=== PATIENT | female | born 1990 | race Hispanic/Latino ===

== ENCOUNTER 2020-08-02 22:06 | Emergency (ER) | payer OTHER, MEDICARE ==
[~2020-08-02] VITALS: Ht 160 cm; Wt 70.3 kg
[2020-08-02] MEDS ORDERED: ONDANSETRON HCL INJ 2MG/ML 2ML 2 MG/ML VIAL IV STA (23:07)
[2020-08-02] MEDS ORDERED: FAMOTIDINE 20 MG/2 ML VIAL IV STA (23:07)
[2020-08-02] MEDS ORDERED: SODIUM CHLORIDE 0.9% 1000ML 1,000 ML IV SCH (23:15)
[2020-08-02] MEDS ORDERED: FAMOTIDINE 20 MG/2 ML VIAL IV ONE (23:18)
[2020-08-02] MEDS ORDERED: SODIUM CHLORIDE 0.9% 1000ML 1,000 ML ONE (23:18)
[2020-08-02] MEDS ORDERED: ONDANSETRON HCL INJ 2MG/ML 2ML 2 MG/ML VIAL ONE (23:18)
[2020-08-03] MEDS ORDERED: PANTOPRAZOLE SO40 MG PO (01:07)
[2020-08-03] MEDS ORDERED: FAMOTIDINE20 MG PO (01:08)
== END 2020-08-03 01:24 | disposition home or self-care (01) ==
LOC: FSED 22:09
DX: R10.13 Epigastric pain (principal); K29.70 Gastritis, unspecified, without bleeding; E11.65 Type 2 diabetes mellitus with hyperglycemia; M79.605 Pain in left leg; E03.9 Hypothyroidism, unspecified; E23.0 Hypopituitarism; H54.8 Legal blindness, as defined in USA
CPT/HCPCS: 74177; 80048; 80076; 81003; 85025; 99284; J2405; J7030

== ENCOUNTER 2021-10-05 12:19 | Emergency (ER) | payer MEDICARE, MEDICAID ==
[~2021-10-05] VITALS: Ht 154.9 cm; Wt 75.7 kg
[~2021-10-05 12:19] MED LIST: FAMOTIDINE20 MG PO; PANTOPRAZOLE SO40 MG PO
[2021-10-05] MEDS ORDERED: KETOROLAC TROMETHAMINE 30 MG/ML VIAL IV STA (13:44)
[2021-10-05] MEDS ORDERED: IOPAMIDOL 370 MG/ML 200 ML INFUS..BTL INJ ONE (14:26)
[2021-10-05] MEDS ORDERED: SODIUM CHLORIDE 0.9% 50ML 50 ML ONE (14:26)
[2021-10-05] MEDS ORDERED: KETOROLAC TROMETHAMINE 30 MG/ML VIAL ONE (15:00)
[2021-10-05] MEDS ORDERED: NAPROSYN500 MG PO (15:56)
[2021-10-05 15:57] VITALS: BP 111/64
== END 2021-10-05 16:06 | disposition home or self-care (01) ==
LOC: FSED 12:34
DX: R06.02 Shortness of breath (principal); E11.65 Type 2 diabetes mellitus with hyperglycemia; R09.1 Pleurisy; H54.8 Legal blindness, as defined in USA; E23.0 Hypopituitarism; E03.9 Hypothyroidism, unspecified
CPT/HCPCS: 71260; 81003; 82553; 84484; 85025; 93005; 99284; J1885; Q9967